=== PATIENT | male | born 1970 | race Caucasian/White ===

== ENCOUNTER 2024-03-02 14:59 | Emergency (ER) | payer OTHER, SELFPAY ==
--- NOTE | 2024-03-02 15:15 | ED_ITS ---
HPI - CPR General Chief Complaint: Cardiac Arrest/CPR Stated Complaint: cardiac arrest Time Seen by Provider: 03/02/24 15:14 History of Present Illness HPI narrative: 53-year-old male presents to the emergency department for evaluation after being found unresponsive. Patient was found unresponsive in his vehicle slumped over the steering wheel. Unknown amount of down time. When EMS arrived patient was asystole. upon arrival to the emergency department patient was still unresponsive and did have an oral airway. patient had a Djeuan device in place. Family states the patient does have a prior history significant drug use. They do state that the patient was getting his 1st pension checked today. Family states patient did have history of methamphetamine abuse but also used multiple other drugs. Review of Systems Review of Systems: All systems reviewed & are unremarkable except as noted in HPI and below Exam Narrative: APPEARANCE: Unresponsive EYES: fixed NOSE: Normal no drainage THROAT: oral airway in place RESPIRATORY: patient being bagged CARDIOVASCULAR: Dejuan device in place MUSCULOSKELETAL: cyanotic with no active movement NEURO: unresponsive Procedures Intubation Intubation #1: Time out performed: Yes sedative: none Laryngoscope: fiber optic video scope Tube Size (cm): 7.5 Method of Intubation: orotracheal Number of Attempts: 1 Tube Secured Depth (cm): 24 Tube Secured Location: teeth Tube Placement Confirmation: visualized tube passing through cords, equal breath sounds bilaterally, no breath sounds over epigastrium and confirmation by capnometry Patient Tolerated Procedure: well and no complications Intubation Complications: none MDM - Cardiac Arrest/CPR MDM Narrative Medical decision making narrative: 53-year-old male arriving to the emergency department and for rest. Patient was asystole. Patient received 2 rounds of epinephrine in the emergency department along with bicarb. Patient was intubated upon arrival. After 2 rounds given in the emergency department patient was asystole and had no cardiac activity on bedside ultrasound. time of was called for 15:10. family did arrive and family was updated on the patient's status. [facility] was called. Patient does not have a primary care physician per family. Discharge Plan Discharge Clinical Impression: Cardiac arrest Patient Disposition: Condition:
--- NOTE | 2024-03-02 18:05 | PC.NURSE ---
Pt phone, wallet and marina given to mother
--- NOTE | 2024-03-02 18:07 | PC.NURSE ---
home called and they will be coming to [place] p[place] patient
--- NOTE | 2024-03-02 21:51 | PC.NURSE ---
Spoke with Aden at [facility] who states that they are coming to get the body. Aware of morgue time of 2099. States that [facility] will be the transport.
== END 2024-03-02 21:00 | disposition expired ==
LOC: ANHED 17:01
PROVIDERS: Emergency Provider Emergency Medicine
DX: I46.9 Cardiac arrest, cause unspecified (principal)
CPT/HCPCS: 31500; 92950; 96372; 96374; 99285; J0171; J7030